=== PATIENT | male | born 1955 | race Caucasian/White ===

== ENCOUNTER 2022-06-03 06:55 | Day surgery (SDC) | payer MEDICAID ==
[~2022-06-03] VITALS: Ht 180.3 cm; Wt 113.4 kg
[~2022-06-03 06:55] MED LIST: ASPI-543 PO; ATEN-60 PO; ESCI-34 PO; PRAV20TA3 PO
[2022-06-03] MEDS ORDERED: LIDOCAINE 2%HCL (LOCAL ANESTH.) INJ 20ML MDV ONE (07:26)
[2022-06-03] MEDS ORDERED: ANGIOMAX 250 MG VIAL IV ONE (07:53)
[2022-06-03] MEDS ORDERED: MIDAZOLAM HCL 2MG/2ML 2ml VIAL (1mg/ml) ONE (07:53)
[2022-06-03] MEDS ORDERED: fentaNYL CITRATE 100 MCG/2 ML VL ONE (07:53)
[2022-06-03] MEDS ORDERED: VERAPAMIL 2.5MG/ML INJ 2ML VIAL IV ONE (07:53)
[2022-06-03] MEDS ORDERED: SODIUM CHL 0.9% 50 ML ONE (07:54)
[2022-06-03] MEDS ORDERED: IODIXANOL 320MG/ML 100ML BTL IV ONE (08:13)
[2022-06-03] MEDS ORDERED: TICAGRELOR 90 MG TAB ONE (08:42)
== END 2022-06-03 13:09 | disposition home or self-care (01) ==
LOC: CATH 06:55
PROVIDERS: ATTEND Internal Medicine
DX: R94.39 Abnormal result of other cardiovascular function study (principal); I25.10 Atherosclerotic heart disease of native coronary artery without angina pectoris; I11.0 Hypertensive heart disease with heart failure; I50.9 Heart failure, unspecified; E66.9 Obesity, unspecified; Z87.891 Personal history of nicotine dependence; Z79.82 Long term (current) use of aspirin; Z82.49 Family history of ischemic heart disease and other diseases of the circulatory system; Z68.35 Body mass index [BMI] 35.0-35.9, adult; Z20.822 Contact with and (suspected) exposure to COVID-19
CPT/HCPCS: 93458; C1725; C1769; C1874; C1887; C1894; C9600; J0583; J1644; J2250; J3010; Q9967; U0003; 99152; 99153

== ENCOUNTER 2024-10-03 06:06 | Day surgery (SDC) | payer MEDICARE, MEDICAID ==
[~2024-10-03] VITALS: Ht 177.8 cm; Wt 102.1 kg
[~2024-10-03 06:06] MED LIST changes: -ASPI-543 PO; +BUPR-133 PO; +CLOP75TA70 PO; +COEN100C15 PO; -ESCI-34 PO; +ESCI1TAB37 PO; +MELO15TA29 PO; +MULT-732 OR; +SEMA2.4I SC
[2024-10-03] MEDS ORDERED: ceFAZolin 2 GM/D5W100ml 100 ML IV ONE (06:24)
[2024-10-03] MEDS ORDERED: METOCLOPRAMIDE HCL 5MG/ml INJ 2ml VIAL IV ONE (06:45)
[2024-10-03] MEDS ORDERED: KETOROLAC TROMETH 30 MG/ML 1ML VIAL IV ONE (06:45)
[2024-10-03] MEDS ORDERED: MORPHINE SULFATE INJ 2 MG/ml SYRG IV PRN (06:45)
[2024-10-03] MEDS ORDERED: fentaNYL CITRATE 100 MCG/2 ML VL IV PRN (06:45)
[2024-10-03] MEDS ORDERED: HYDROmorphone HCL 2 MG/ML VL/or syr IV PRN ×2 (06:45)
[2024-10-03] MEDS ORDERED: ROCURONIUM 10MG/ML 10ML VIAL IV ONE (06:55)
[2024-10-03] MEDS ORDERED: SUCCINYLCHOLINE CHLORIDE 20 MG/ML 10ML VIAL IV ONE (06:55)
[2024-10-03] MEDS ORDERED: MIDAZOLAM HCL 2MG/2ML 2ml VIAL (1mg/ml) ONE (07:12)
[2024-10-03] MEDS ORDERED: PROPOFOL 10 MG/ML 20 ML IV ONE (07:12)
[2024-10-03] MEDS ORDERED: KETAMINE 50mg/ML 1ml syringe ONE (07:12)
[2024-10-03] MEDS ORDERED: SODIUM CHLORIDE LOCK 20 ML ONE (07:12)
[2024-10-03] MEDS ORDERED: fentaNYL CITRATE 100 MCG/2 ML VL ONE (07:12)
[2024-10-03] MEDS ORDERED: MEPERIDINE HCL (25 MG/ML) 1ML VIAL ONE (07:12)
[2024-10-03] MEDS ORDERED: LIDOCAINE HCL 2% TOP JELLY 5ML TOP ONE (07:12)
[2024-10-03] MEDS ORDERED: LIDOCAINE 1% INJ PF 5ML AMP ONE (07:12)
[2024-10-03] MEDS ORDERED: ONDANSETRON HCL 4 MG/2 ML VIAL ONE (07:12)
[2024-10-03] MEDS: BUPIVACAINE HCL 0.25% P/F 10 ML VIAL ONE (08:51)
[2024-10-03] MEDS: LIDOCAINE 1% HCL (LOCAL ANESTH.) INJ 20ML MDV ONE (08:51)
[2024-10-03 09:00] VITALS: TEMP 98.2
[2024-10-03 10:40] VITALS: BP 119/60; PULSE 67; RESP 19; O2SAT 95
--- NOTE | 2024-10-05 16:20 | DVHOP2 ---
Operative Report - 2 Report Details Date: 10/03/24 Preop Diagnosis: Left cubital tunnel syndrome, dupytren contracture and trigger finger at ring and small finger Postop Diagnosis: as above Surgeon: Ronaldo Burton MD Socket Welder Helper: Mack CRAMER Anesthesiologist: Brando DICKINSON Anesthesia: General Consent: The patient was informed of the risks and benefits of the procedure. These include but are not limited to complications of anesthesia, postoperative infection, incomplete relief of symptoms, recurrence of symptoms, damage to blood vessels, nerves and tendons, deep venous thrombosis, pulmonary embolism and possible need for repeat surgery in the future. Estimated Blood Loss: 5 cc Name of Procedure Performed Left cubital tunnel release, ring and small finger trigger release, dupytren contracture relase at small and ring finger Procedure Details Procedure Details: After administering appropriate antibiotics and anesthesia, the upper extremity was prepped and draped in the usual standard fashion. The arm was exsanguinated with Esmarch, and the tourniquet inflated to 250 mmHg. A zig zag incision was made over left palm, ring and small digit's Dupuytren contracture. Careful dissection to take out cords causing contracture. Dissection was carried down to the flexor sheath with care taken to identify and protect the neurovascular bundles. Patient dupytren contracture was carefully isolated and removed from PIP joint to mid wrist. The sheath was opened under direct vision with a scalpel, and then a scissor was used to release it under direct vision from the proximal extent of the A1 dennis to just proximal to the proximal digital crease. Meticulous hemostasis was maintained with electrocautery. The tendons were identified and atraumatically pulled and trigger finger released. We then made a 5 cm incision over cubital tunnel. Blunt dissection to ulnar nerve. At that point ulnar nerve protected and cubital release done releasing the ulnar nerve. Hemostasis maintained with bipolar cautery. Patients nerve stayed within the groove so did not need transposition. After irrigating out the wound with copious amounts of sterile saline, the skin was closed with 3-0 nylon simple interrupted sutures and krishna. The patient was sent to the recovery room in good condition, having tolerated the procedure well. Condition Good Disposition Home RONALDO BURTON MD Oct 05, 2024 16:20
== END 2024-10-03 10:50 | disposition home or self-care (01) ==
LOC: SUR 06:06
PROVIDERS: ATTEND Orthopaedic Surgery Adult Reconstructive Orthopaedic Surgery
DX: G56.22 Lesion of ulnar nerve, left upper limb (principal); M65.342 Trigger finger, left ring finger; M65.352 Trigger finger, left little finger; M72.0 Palmar fascial fibromatosis [Dupuytren]; I10 Essential (primary) hypertension; I25.10 Atherosclerotic heart disease of native coronary artery without angina pectoris; I25.2 Old myocardial infarction; G89.29 Other chronic pain; Z87.891 Personal history of nicotine dependence; Z79.899 Other long term (current) drug therapy; Z95.5 Presence of coronary angioplasty implant and graft; Z98.890 Other specified postprocedural states
CPT/HCPCS: 26055; 26123; 26125; 64718; J0330; J2003; J2175; J2250; J2405; J2704; J3010; J3490